=== PATIENT | female | born 1980 | race Caucasian/White ===

== ENCOUNTER 2016-09-17 18:24 | Outpatient (CLI) | payer BC ==
[~2016-09-17] VITALS: Ht 152.4 cm; Wt 65.9 kg
[~2016-09-17 18:24] MED LIST: FOLIC ACID 11 MG/TA1 PO; MOTRIN 600600 MG/TAB PO; PRENATAL VITAMI1 TA5 PO; PRILOTC; SYNTHROID 0.0.025 MG PO
[2016-09-17 18:40] VITALS: BP 107/67; PULSE 75; TEMP 97.9
[2016-09-17] MEDS ORDERED: SYNTHROID0.05 MG/TA PO (18:53)
[2016-09-17] MEDS ORDERED: IRON325 M2 PO (18:53)
[2016-09-17] MEDS ORDERED: ASPIRIN 81M81 MG/TA2 PO (18:54)
[2016-09-17 20:00] VITALS: BP 107/57; PULSE 75
[2016-09-17 20:30] VITALS: BP 107/57; PULSE 75
== END 2016-09-17 21:15 | disposition home or self-care (01) ==
LOC: LDRO 18:24
DX: O47.03 False labor before 37 completed weeks of gestation, third trimester (principal); Z3A.32 32 weeks gestation of pregnancy
CPT/HCPCS: J3105

== ENCOUNTER 2016-11-03 22:49 | Outpatient (CLI) | payer BC ==
[~2016-11-03] VITALS: Ht 152.4 cm; Wt 70.0 kg
[~2016-11-03 22:49] MED LIST changes: +ASPIRIN 81M81 MG/TA2 PO; +IRON325 M2 PO; +SYNTHROID0.05 MG/TA PO
[2016-11-03 23:38] VITALS: BP 118/69; PULSE 76
[2016-11-04 00:35] VITALS: BP 108/62; PULSE 68; TEMP 98.8
[2016-11-05] MEDS ORDERED: MOTRIN 800800 MG/TAB PO (08:13)
[2016-11-05] MEDS ORDERED: PERCOCET 325 MG1 TA2 PO (08:13)
== END 2016-11-04 00:55 | disposition home or self-care (01) ==
LOC: LDRO 22:49
DX: O62.9 Abnormality of forces of labor, unspecified (principal); Z3A.39 39 weeks gestation of pregnancy

== ENCOUNTER 2016-11-04 04:10 | Inpatient (IN) | payer BC ==
[2016-11-04] VITALS (10 sets, daily range): BP systolic 93–114; BP diastolic 50–72; PULSE 62–78; TEMP 97.6–98.8
[2016-11-04 05:05] LABS: BASO % 0.3 % (0.0-2.0); EOS # 0.1 (0.0-0.7); EOS % 0.6 % (0-4.0); GRAN # 6.5 (1.4-6.5); GRAN % 71.7 % (42.2-75.2); LYMPH # 1.8 (1.2-3.4); LYMPH % 19.7 % (20.0-51.0); MEAN CELL VOLUME 84 fl (80.0-100.0); MEAN CORPUSCULAR HGB CONC 33 g/dl (33.0-37.0); MEAN PLATELET VOLUME 11.2 fl (7.4-10.4); MONO # 0.7 (0.1-0.6); MONO % 7.3 % (1.7-9.3); PLATELET COUNT 236 K/mm3 (130-400); RED BLOOD COUNT 4.29 M/mm3 (4.10-5.30); REDCELL DISTRIBUTION WIDTH-CV 16.6 % (11.5-14.5)
[2016-11-04 05:19] LABS: HEMOGLOBIN 11.8 g/dl (12.5-16.0); MEAN CORPUSCULAR HEMOGLOBIN 28 pg (27.0-31.0)
[2016-11-04 05:29] LABS: HEMATOCRIT 36.1 % (37.0-47.0)
[2016-11-05 07:49] VITALS: BP 104/64; PULSE 70; TEMP 98.1
[2016-11-05] MEDS ORDERED: PERCOCET 325 MG1 TA2 PO (08:13)
[2016-11-05] MEDS ORDERED: MOTRIN 800800 MG/TAB PO (08:13)
== END 2016-11-05 12:25 | disposition home or self-care (01) | DRG 775 ==
LOC: LDRO 04:10 → LDR 04:30 → OB 07:00
PROVIDERS: Obstetrics & Gynecology
PROC: 10E0XZZ Delivery of Products of Conception, External Approach (ICD-10-PCS; principal; 2016-11-04)
PROC: 0HQ9XZZ Repair Perineum Skin, External Approach (ICD-10-PCS; 2016-11-04)
DX: O99.284 Endocrine, nutritional and metabolic diseases complicating childbirth (principal); E03.9 Hypothyroidism, unspecified; O09.523 Supervision of elderly multigravida, third trimester; O70.0 First degree perineal laceration during delivery; Z3A.39 39 weeks gestation of pregnancy; Z37.0 Single live birth; O09.813 Supervision of pregnancy resulting from assisted reproductive technology, third trimester
CPT/HCPCS: J2590

== ENCOUNTER → 2018-04-18 | Outpatient (CLI) | payer BC ==
[~2018-04-18] MED LIST changes: +MOTRIN 800800 MG/TAB PO; +PERCOCET 325 MG1 TA2 PO
== END ==
LOC: MC.RAD 07:20
DX: Z12.31 Encounter for screening mammogram for malignant neoplasm of breast (principal)

== ENCOUNTER 2019-02-01 18:23 | Inpatient (IN) | payer BC ==
[2019-02-01] VITALS (11 sets, daily range): BP systolic 91–127; BP diastolic 53–77; PULSE 60–98; TEMP 98.2
[~2019-02-01] VITALS: Ht 149.9 cm; Wt 65.5 kg
--- NOTE | 2019-02-01 18:35 | NUR ---
1837- Pt arrived on unit ambulatory and with complaints of contractions starting this afternoon and worsening this evening. Pt denies any leaking of fluid, vaginal bleeding and reports normal movement. EFM and toco monitors started. Vital signs WNL. SVE by ALEC Maxwell 2. 1844- Information reviewed with Dr. Hansen. Orders for labor assessment received. 1909- IV started, labs obtained and LR infusing per order. See EMAR for details.
--- NOTE | 2019-02-01 19:10 | NUR ---
1909 CARE ASSUMED. ASSIST TO BR- VOIDS. RETURNED TO SIT IN [facility]. CONSISERS EPIDURAL. 1929 SVE 6/100/-3 REQUESTS EPIDURAL. ELIZABETH NOTIFIED. 1939 SEATED FOR EPID. 1945 TEST DOSE 2014 INCREASED PELVIC PRESSURE NO PAIN. SVE 10 CM +[address] CEJA NOTIFEID. HERE AT UNIT. 2019 AROM. BEGINS TO PUSH. PER SCRUB 2023 TO MOTHERS ABDOMEN.
[2019-02-01 19:39] LABS: BASO % 0.2 % (0.0-2.0); EOS % 0.4 % (0-4.0); GRAN % 71.4 % (42.2-75.2); HEMATOCRIT 38.1 % (37.0-47.0); HEMOGLOBIN 12.2 g/dl (12.5-16.0); LYMPH # 1.6 (1.2-3.4); LYMPH % 19.3 % (20.0-51.0); MEAN CELL VOLUME 87 fl (80.0-100.0); MEAN CORPUSCULAR HEMOGLOBIN 28 pg (27.0-31.0); MEAN CORPUSCULAR HGB CONC 32 g/dl (33.0-37.0); MEAN PLATELET VOLUME 10.9 fl (7.4-10.4); MONO # 0.7 (0.1-0.6); MONO % 8.5 % (1.7-9.3); PLATELET COUNT 238 K/mm3 (130-400); RED BLOOD COUNT 4.38 M/mm3 (4.10-5.30); REDCELL DISTRIBUTION WIDTH-CV 16.8 % (11.5-14.5)
[2019-02-02 04:35] VITALS: BP 91/57; PULSE 65; TEMP 98.1
[2019-02-02 07:00] VITALS: BP 100/57; PULSE 61; TEMP 98.2
[2019-02-02 07:04] LABS: HEMOGLOBIN 11.4 g/dl (12.5-16.0)
[2019-02-02 07:05] LABS: HEMATOCRIT 36.4 % (37.0-47.0)
[2019-02-02] MEDS ORDERED: IBU600 MG PO (09:25)
--- NOTE | 2019-02-02 11:44 | NUR ---
Initial visit; Mom thanked [employer] for offering congratulations and God's blessings for the of her daughter and her family at home.
[2019-02-02 20:55] VITALS: BP 94/65; PULSE 70
--- NOTE | 2019-02-02 21:30 | NUR ---
Discharge instructions and paperwork were reviewed with pt and at the bedside. Both verbalized an understanding, agrees with the plan and states no questions or concerns at this time.
--- NOTE | 2019-02-02 21:55 | NUR ---
ID bands matched and removed. Security tag disarmed and removed. Pt discharged home ambulatory escorted out by and staff with secured in car seat. Home via private vehicle with in rear facing car seat secured by parents. No apparent distress noted.
== END 2019-02-02 21:55 | disposition home or self-care (01) | DRG 807 ==
LOC: LDRO 18:23 → LDR 18:30 → OB 23:40
PROVIDERS: ADMIT Obstetrics & Gynecology
PROC: 10E0XZZ Delivery of Products of Conception, External Approach (ICD-10-PCS; principal; 2019-02-01)
DX: O99.62 Diseases of the digestive system complicating childbirth (principal); Z37.0 Single live birth; K21.9 Gastro-esophageal reflux disease without esophagitis; O99.284 Endocrine, nutritional and metabolic diseases complicating childbirth; E03.9 Hypothyroidism, unspecified; Z3A.38 38 weeks gestation of pregnancy
CPT/HCPCS: J2590; J7120

== ENCOUNTER → 2020-05-10 | Outpatient (CLI) | payer BC ==
[~2020-05-10] MED LIST changes: +IBU600 MG PO
== END ==
LOC: MC.RAD 08:00
DX: Z12.31 Encounter for screening mammogram for malignant neoplasm of breast (principal)

== ENCOUNTER 2021-04-05 14:20 | Inpatient (IN) | payer BC ==
[~2021-04-05] VITALS: Ht 149.9 cm; Wt 69.5 kg
[2021-04-05] VITALS (30 sets, daily range): BP systolic 95–114; BP diastolic 51–75; PULSE 66–109; TEMP 97.7–98.8
--- NOTE | 2021-04-05 14:50 | NUR ---
Admits to L&D for induction of labor. Ambulatory to unit. Sent over from office for visible decelerations on ultrasound.
--- NOTE | 2021-04-05 15:00 | NUR ---
Note in listening to heart rate, audible irregularity in heart rate noted. Does not sound like a typical deceleration. Also note, no connectivity in tracing on any of the drops in heart rate.
[2021-04-05 15:29] LABS: BASO % 0.4 % (0.0-2.0); EOS % 0.3 % (0-4.0); GRAN # 5.4 K/mm3 (1.4-6.5); GRAN % 73.6 % (42.2-75.2); HEMATOCRIT 41.7 % (37.0-47.0); HEMOGLOBIN 13.5 g/dl (12.5-16.0); LYMPH # 1.3 K/mm3 (1.2-3.4); LYMPH % 17.5 % (20.0-51.0); MEAN CELL VOLUME 85 fl (80.0-100.0); MEAN CORPUSCULAR HEMOGLOBIN 27 pg (27.0-31.0); MEAN CORPUSCULAR HGB CONC 32 g/dl (33.0-37.0); MONO # 0.6 K/mm3 (0.1-0.6); MONO % 7.9 % (1.7-9.3); PLATELET COUNT 291 K/mm3 (130-400); RED BLOOD COUNT 4.93 M/mm3 (4.10-5.30); REDCELL DISTRIBUTION WIDTH-CV 17.3 % (11.5-14.5)
--- NOTE | 2021-04-05 15:45 | NUR ---
Pit start @ 2mU/min.
[2021-04-05] MEDS ORDERED: SYNTHROID0.112 MG/T PO (15:46)
[2021-04-05 15:47] LABS: ALBUMIN 2.9 gm/dL (3.5-5.0); BILIRUBIN,TOTAL 0.3 mg/dL (0.2-1.2); CALCIUM 9.6 mg/dL (8.4-10.2); CREATININE, serum 0.67 mg/dL (0.57-1.11); POTASSIUM 3.5 mmol/L (3.5-4.5); TOTAL PROTEIN 6.6 gm/dL (6.2-8.1)
[2021-04-05] MEDS ORDERED: ZOLOFT 50MG50 MG PO (15:47)
[2021-04-05] MEDS ORDERED: PRILOSEC 20MG20 MG PO (15:47)
[2021-04-05] MEDS ORDERED: NATURAL IRON65 MG (15:48)
[2021-04-05] MEDS ORDERED: FOLIC ACID 11 MG/TA1 PO (15:48)
[2021-04-05 16:08] LABS: THYROID STIMULATING HORMONE 2.01 uIU/mL (0.350-4.940)
--- NOTE | 2021-04-05 16:30 | NUR ---
Patient reports she is aware of the contractions she is having, states they are not unbearable.
--- NOTE | 2021-04-05 17:01 | NUR ---
here. Note has reviewed lab results and monitor strip. In room to speak with patient and significant other. Listens to heart rhythm. Discusses with patient and spouse that audibly sounds as though fetus has irregular heart rate, does not believe fetus is in any imminent danger, but does not want to put off delivery of baby. Gives patient option to continue with induction of labor, or go for primary section. Patient and spouse allowed time alone to discuss options.
--- NOTE | 2021-04-05 22:35 | NUR ---
2235- PATIENT CALLED OUT STATING SHE WAS FEELING MORE PRESSURE. THIS RN AND DR. CEJA TO BEDSIDE FOR EVALUATION. 2236- PROVIDER STATED SHE WAS COMPLETE AND READY TO HAVE A BABY. PATIENT AND ROOM SET UP FOR DELIVERY. NURSERY STAFF NOTIFIED. 2238- WONG REMOVED WITH 150 CC OF CLEAR YELLOW URINE NOTED. 2241- PATIENT BEGINS PUSHING WITH PROVIDER. ALL STAFF NEEDED PRESENT FOR DELIVERY. 2242- OF VIABLE MALE . PLACED TO MOTHER ABDOMEN WHERE NURSERY NURSE ASSUMES CARE AT THIS TIME. CORD CLAMPED BY PROVIDER AND CUT BY FATHER OF THE BABY. CORD BLOOD AND CORD GASES DRAWN DURING THIS TIME WELL. PITOCIN TURNED OFF AT THIS TIME. 2247- OF PLACENTA. PITOCIN STARTED PER PROTOCOL AT 333ML/HR. PROVIDER NOTED PATIENT TO BE INTACT. FUNDUS FIRM AND D1 WITH MODERATE LOCHIA NOTED. PROVIDER NOTED EBL TO BE 300. PATIENT AND ROOM CLEANED UP AND PUT BACK TOGETHER. NEW CHUX AND PERIPAD UNDER PATIENT. RECOVERY STARTED.
[2021-04-06] VITALS (8 sets, daily range): BP systolic 92–107; BP diastolic 52–69; PULSE 61–77; TEMP 97.3–98.2
[2021-04-06 06:42] LABS: HEMATOCRIT 34.2 % (37.0-47.0)
--- NOTE | 2021-04-06 09:11 | NUR ---
Initial visit; Parents thanked [employer] for offering congratulations and God's blessings for the of their son.
[2021-04-07 11:55] VITALS: BP 104/68; PULSE 76; TEMP 98.1
== END 2021-04-07 11:57 | disposition home or self-care (01) | DRG 807 ==
LOC: LDR 14:44 → OB 04-06 01:30
PROVIDERS: ADMIT Obstetrics & Gynecology
PROC: 10E0XZZ Delivery of Products of Conception, External Approach (ICD-10-PCS; principal; 2021-04-05)
DX: O99.02 Anemia complicating childbirth (principal); Z37.0 Single live birth; D64.9 Anemia, unspecified; O99.284 Endocrine, nutritional and metabolic diseases complicating childbirth; E03.9 Hypothyroidism, unspecified; O99.344 Other mental disorders complicating childbirth; F41.9 Anxiety disorder, unspecified; O76 Abnormality in fetal heart rate and rhythm complicating labor and delivery; O69.81X0 Labor and delivery complicated by cord around neck, without compression, not applicable or unspecified; Z3A.39 39 weeks gestation of pregnancy
CPT/HCPCS: J2590; J7120

== ENCOUNTER → 2022-11-23 | Outpatient (CLI) | payer OTHER ==
[~2022-11-23] MED LIST changes: +NATURAL IRON65 MG; +PRILOSEC 20MG20 MG PO; +SYNTHROID0.112 MG/T PO; +ZOLOFT 50MG50 MG PO
== END ==
LOC: MC.RAD 12:52
DX: Z12.31 Encounter for screening mammogram for malignant neoplasm of breast (principal)

== ENCOUNTER 2023-11-29 07:39 | Day surgery (SDC) | payer OTHER ==
[~2023-11-29] VITALS: Ht 152.4 cm; Wt 55.7 kg
[~2023-11-29 07:39] MED LIST changes: +LR 1,000 ML IV SCH; +Ondansetron 4 MG/2 ML VIAL IV PRN
[2023-11-29] MEDS ORDERED: PRILOTC (08:21)
[2023-11-29] MEDS ORDERED: VITAMIN D31000 I1 PO (08:21)
[2023-11-29] MEDS ORDERED: FEOSOL45 MG (08:22)
[2023-11-29 08:30] VITALS: BP 105/67; PULSE 64; TEMP 96.9
[2023-11-29] MEDS ORDERED: Lidocaine PF 2% (20 MG/ML) 5 ML VIAL ONE (09:00)
[2023-11-29 09:30] VITALS: BP 95/69; PULSE 56; TEMP 97.1
--- NOTE | 2023-11-29 09:30 | NUR ---
PATIENT RETURNS TO BAY 4 IN AMBULATORY VIA CART. ASSIST X 1 TO CHAIR. SHE IS ALERT AND ORIENTED. AT BEDSIDE. VS WNL. PATIENT REQUESTS DIET PEPSI AND A MUFFIN. CALL LIGHT WITHIN REACH. WILL CONTINUE TO MONITOR.
[2023-11-29 09:45] VITALS: BP 107/66; PULSE 57
--- NOTE | 2023-11-29 09:45 | NUR ---
PATIENT IS DOING WELL. SHE DENIES ANY PAIN OR NAUSEA AFTER EATING AND DRINKING. PHYSICIAN SPOKE WITH PATIENT. IV DISCONTINUED. VS WNL. WILL CONTINUE TO MONITOR.
[2023-11-29 10:00] VITALS: BP 99/65; PULSE 52
--- NOTE | 2023-11-29 10:00 | NUR ---
PATIENT IS DOING WELL, SHE IS READY FOR DISCHARGE. LAST SET OF VITALS WNL. DISCHARGE INSTRUCTIONS REVIEWED WITH PATIENT AND HER . WILL DISCHARGE VIA WHEELCHAIR WHEN SHE IS DRESSED.
[2023-11-29 13:12] VITALS: BP 95/57; PULSE 55
== END 2023-11-29 10:08 | disposition home or self-care (01) ==
LOC: SDCO 07:39
DX: Z12.11 Encounter for screening for malignant neoplasm of colon (principal); D12.2 Benign neoplasm of ascending colon; D12.5 Benign neoplasm of sigmoid colon; K64.1 Second degree hemorrhoids
CPT/HCPCS: J2704; J7120

== ENCOUNTER → 2023-12-25 | Outpatient (CLI) | payer OTHER ==
[~2023-12-25] MED LIST changes: +FEOSOL45 MG; -LR 1,000 ML IV SCH; -Ondansetron 4 MG/2 ML VIAL IV PRN; +VITAMIN D31000 I1 PO
== END ==
LOC: MC.RAD 14:18
DX: Z12.31 Encounter for screening mammogram for malignant neoplasm of breast (principal)